=== PATIENT | female | born 1980 ===

== ENCOUNTER 2023-05-30 21:05 | Emergency (ER) | payer MEDICARE, SELFPAY ==
[2023-05-30 21:11] VITALS: BP 115/85; PULSE 74; TEMP 36.4; O2SAT 98; BMI 33.1
--- NOTE | 2023-05-30 21:19 | XR_ITS ---
The [address] [address] Patient Name: MARYELLEN MORENO MRN: [id number] date: 1980 Sex: F Assigned Patient Location: ER Current Patient Location: ER Accession/Order Number: [id number] Exam Date: 05/30/2023 21:30 Report Date: 05/30/2023 22:11 At the request of: SHAHEEN WITT Procedure: XR ankle RT min 3V XR ankle RT min 3V: HISTORY: FALL FALL COMPARISON: None available. TECHNIQUE: 3 views of the right ankle are submitted. 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 This is related to previous surgical intervention. No definitive acute fractures are appreciated. SOFT TISSUES: Smoothly marginated soft tissue densities are present adjacent to the medial malleolus which may be sequela to old trauma. Additional soft tissue calcifications are present in the right lower extremity. There is soft tissue edema. XR/XR ankle RT min 3V IMPRESSION: Postsurgical changes in the right ankle. No definitive acute fractures are appreciated. Electronically authenticated by: DEVAN SIMPSON Date: 05/30/2023 22:11
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
== END 2023-05-30 22:52 | disposition home or self-care (01) ==
PROVIDERS: Emergency Provider Internal Medicine
DX: S93.401A Sprain of unspecified ligament of right ankle, initial encounter (principal); S96.911A Strain of unspecified muscle and tendon at ankle and foot level, right foot, initial encounter; V49.9XXA Car occupant (driver) (passenger) injured in unspecified traffic accident, initial encounter
CPT/HCPCS: 73610; 99283